=== PATIENT | female | born 1965 | race Caucasian/White ===

== ENCOUNTER 2019-02-27 15:50 | Inpatient (IN) | payer OTHER ==
[~2019-02-27] VITALS: Ht 177.8 cm; Wt 69.1 kg
--- NOTE | 2019-02-27 15:56 | NUR ---
PT IN LOBBY RESTROOM WHEN CALLED TO TRIAGE.
[2019-02-27 16:04] VITALS: Ht 177.8 cm; Wt 69.1 kg
--- NOTE | 2019-02-27 16:38 | NUR ---
DR THOMAS AT BEDSIDE FOR MSE.
[2019-02-27 17:21] LABS: PLATELET COUNT 343 x10^3mcL (130-400); RED CELL DISTRIBUTION WIDTH 13.6 % (11.5-14.5)
--- NOTE | 2019-02-27 17:30 | NUR ---
INITIATED 2000 NS BOLUS. PLEASE SEE EMAR.
[2019-02-27 17:35] LABS: CALCIUM 9.5 mg/dL (8.5-10.1); CARBON DIOXIDE 22.7 mmol/L (21-32); CHLORIDE SERUM 103 mmol/L (98-107); CREATININE SERUM 0.8 mg/dL (0.6-1.0); GFR1 > 60 mL/min; GLUCOSE SERUM 106 mg/dL (74-106); POTASSIUM SERUM 3.6 mmol/L (3.5-5.1); SODIUM SERUM 140 mmol/L (136-145)
[2019-02-27 17:40] LABS: BAND NEUTROPHIL 3 % (0-10); METAMYELOCTE 1 % (0-2); MONOCYTE 1 % (0-7); SEGMENTED NEUTROPHILS 89 % (37-75)
[2019-02-27 17:41] LABS: PLATELET MORPHOLOGY PLATELETS NORMAL; rbc morphology (normal/abnorm) NORMAL (NORMAL)
[2019-02-27 17:47] LABS: ALBUMIN 3.8 g/dL (3.4-5.0); ALKALINE PHOSPHATASE 67 U/L (46-116); ALT/SGPT 23 U/L (14-59); AST/SGOT 14 U/L (15-37); BILIRUBIN TOTAL 0.8 mg/dL (0.20-1.00); HDL CHOLESTEROL 59 mg/dL (40-60); LIPASE 340 IU/L (73-393); T4(THYROXINE) 10.6 ug/dL (4.7-13.3); TOTAL PROTEIN, SERUM 7.9 g/dL (6.4-8.2)
[2019-02-27 17:48] LABS: CHOLESTEROL 208 mg/dL (<200)
[2019-02-27] MEDS ORDERED: PRILOSEC OTC20 M1 PO (17:53)
--- NOTE | 2019-02-27 17:53 | NUR ---
PT AMBULATED TO THE RESTROOM WITH SPECIMEN CONTAINER.
--- NOTE | 2019-02-27 18:10 | NUR ---
PT TAKEN TO CT VIA [facility]ERA.
[2019-02-27 18:38] LABS: microscopic required? YES; urine erythrocyte TRACE (NEGATIVE)
--- NOTE | 2019-02-27 18:55 | NUR ---
ATTEMPTED TO CALL FOR REPORT. RN IS BUSY.
--- NOTE | 2019-02-27 19:14 | NUR ---
REPORT GIVEN TO MARISOL BRODY TO ASSUME CARE OF THE PT.
--- NOTE | 2019-02-27 19:15 | NUR ---
REPORT RECIEVED FROM ASHLEY. PT A&O X4, SPEAKING IN FULL SENTENCES, ANSWERING QUESTIONS APPROPRIATELY. LAYING IN POSITION OF COMFORT. VSS, RESPS E/U, NAD NOTED AT THIS TIME. WATING TO CALL REPORT.
--- NOTE | 2019-02-27 19:33 | NUR ---
ELISHA STARTED PER MD ORDER
--- NOTE | 2019-02-27 19:42 | NUR ---
REPORT GIVEN MARISOL YEE TO ASSUME CARE OF THE PT.
--- NOTE | 2019-02-27 19:44 | NUR ---
PT MEDICATED PER MD ORDER
--- NOTE | 2019-02-27 19:55 | NUR ---
RECEIVED PT VIA GUERNEY ACCOMPANIED BY NURSE. PT AAOX4, DENIES CP/PRESSURE AT THIS TIME. PALPABLE PULSES TO BUP AND BLE, NO EDEMA NOTED. LUNG SOUNDS CTA ON RA, BREATHING EVEN AND UNALBORED, NO SIGNS OF RESP DISTRESS. ABD SOFT AND ROUND, ACTIVE BOWEL SOUNDS X4 QUAD, C/O ABD PAIN ONLY WHEN SHE MOVES. DENIES N/V AT THIS TIME. VOIDS FREELY BRP, AMBULATORY. SKIN INTACT. IV TO LAC INFUSING WELL, SITE WNL. BED AT LOWEST SETTING, CALL LIGHT WITHING REACH, REPORT GIVEN TO PRIMARY NURSE.
[2019-02-27 20:05] LABS: MAGNESIUM 1.6 mg/dL (1.8-2.4); PHOSPHOROUS 2.5 mg/dL (2.5-4.9)
[2019-02-27 20:07] LABS: CHOLESTEROL/HDL RATIO 3.6
[2019-02-27 20:28] VITALS: BP 96/60
--- NOTE | 2019-02-28 01:29 | NUR ---
CONSENT SIGNED BY PATIENT FOR CT ABD WITH IV CONTRAST.
--- NOTE | 2019-02-28 04:03 | NUR ---
PT RESTING, BREATHING EVEN AND UNLABORED WITH NO SOB NOTED. IV PATENT, INFUSING WELL WITH NO SIGNS OF INFILTRATION NOTED. CALL BUTTON WITHIN REACH. WILL CONTINUE TO MONITOR.
[2019-02-28 05:41] VITALS: BP 95/53
--- NOTE | 2019-02-28 05:50 | NUR ---
PT SLEPT ON AND OFF THROUGHOUT THE NIGHT WITH NO SIGNS OF DISTRESS NOTED. IV PATENT, INFUSING WELL WITH NO SIGNS OF INFILTRATION. PT DENIES ANY PAIN OR DISTRESS. MEDICATED PER EMAR. PT AMBULATORY. CALL BUTTON WITHIN REACH. WILL CONTINUE TO MONITOR AND ENDORSE CARE TO DAY SHIFT RN.
[2019-02-28 06:36] LABS: BASOPHIL % 0.6 % (0-2); PLATELET COUNT 271 x10^3mcL (130-400); RED CELL DISTRIBUTION WIDTH 13.7 % (11.5-14.5)
[2019-02-28 06:44] LABS: CALCIUM 8.5 mg/dL (8.5-10.1); CHLORIDE SERUM 108 mmol/L (98-107); CREATININE SERUM 0.8 mg/dL (0.6-1.0); GFR1 > 60 mL/min; GLUCOSE SERUM 89 mg/dL (74-106); MAGNESIUM 2.3 mg/dL (1.8-2.4); PHOSPHOROUS 2.9 mg/dL (2.5-4.9); POTASSIUM SERUM 3.6 mmol/L (3.5-5.1); SODIUM SERUM 142 mmol/L (136-145)
--- NOTE | 2019-02-28 07:20 | NUR ---
PT BREATHING EVEN AND UNLABORED WITH NO SIGNS OF DISTRESS NOTED. ENDORSE CARE TO CHARGE NURSE.
--- NOTE | 2019-02-28 08:01 | NUR ---
PT SEEN, SITTING UP AND EATING CLEAR LIQUID DIET AT THIS TIME, ALERT AND ORIENTED, DENIES HEADACHE OR DIZZINESS, BREATHING EVEN AND UNLABORED, LUNG SOUNDS CLEAR, ON ROOM AIR WITH NO RESP DISTRESS NOTED, ON TELE#21 NSR, DENIES CHEST PAIN, PULSES PALPABLE, NO EDEMA NOTED, IVF INFUSING WELL, ABD SOFT WITH ACTIVE BS, S/P COLONOSCOPY 02/27, C/O OF ON AND OFF ABD PAIN, N/V/D AT TIMES BUT NOT AT THIS TIME, VOIDING FREELY, NO DISTRESS NOTED, WILL KEEP TO MONITOR.
--- NOTE | 2019-02-28 08:40 | NUR ---
RECIEVED REPORT FROM MARISOL TSANG TO ASSUME ALL CARES. ALL QUESTIONS AND CONCERNS ADDRESSED. WILL CONTINUE TO MONITOR.
[2019-02-28 09:09] VITALS: BP 91/49
[2019-02-28] MEDS ORDERED: LEVOFLOXACIN500 M1 PO (11:42)
--- NOTE | 2019-02-28 12:28 | NUR ---
PATIENT ATE 100% OF HER LATE BREAKFAST. PATIENT STATES SHE FEELS FINE, DENIES NAUSEA OR ABDOMINAL PAIN. PATIENT REQUESTING TO GO HOME AT THIS TIME. DR. ANGEL BARILLAS. WILL CONTINUE TO MONITOR.
[2019-02-28 12:59] VITALS: BP 113/69
[2019-02-28 13:14] VITALS: BP 113/69
--- NOTE | 2019-02-28 14:10 | NUR ---
DISCHARGE INSTRUCTIONS AND PRESCRIPTIONS PROVIDED TO PATIENT. ALL QUESTIONS AND CONCERNS ADDRESSED. TELE BOX REMOVED AND IV TO LAC DC'D WITH CATH TIP INTACT. PATIENT TOLERATED WELL. PATIENT GETTING DRESSED. PATIENT WILL CALL WHEN HER RIDE ARRIVES TO TAKE HER HOME.
== END 2019-02-28 14:30 | disposition home or self-care (01) | DRG 720 ==
LOC: ED 15:50 → DU 17:43
PROVIDERS: Emergency Medicine; ADMIT General Practice
DX: A41.9 Sepsis, unspecified organism (principal); E83.42 Hypomagnesemia; E05.80 Other thyrotoxicosis without thyrotoxic crisis or storm; E78.00 Pure hypercholesterolemia, unspecified; K52.9 Noninfective gastroenteritis and colitis, unspecified; K21.9 Gastro-esophageal reflux disease without esophagitis; Z88.6 Allergy status to analgesic agent; Z85.41 Personal history of malignant neoplasm of cervix uteri; Z88.1 Allergy status to other antibiotic agents; Z88.8 Allergy status to other drugs, medicaments and biological substances; Z90.49 Acquired absence of other specified parts of digestive tract; Z90.710 Acquired absence of both cervix and uterus; Z80.0 Family history of malignant neoplasm of digestive organs
CPT/HCPCS: 83880; G0378; J1885; J1956; J3475; J3490; J7030; Q9967